=== PATIENT | male | born 1975 | race Caucasian/White ===

== ENCOUNTER 2016-12-05 11:21 | Emergency (ER) | payer BC ==
[~2016-12-05] VITALS: Ht 188 cm; Wt 145.6 kg
[2016-12-05 14:49] VITALS: BP 135/93
== END 2016-12-05 14:49 | disposition home or self-care (01) ==
LOC: ED 11:21
DX: S80.211A Abrasion, right knee, initial encounter (principal); W01.0XXA Fall on same level from slipping, tripping and stumbling without subsequent striking against object, initial encounter; Y93.89 Activity, other specified; Y92.017 Garden or yard in single-family (private) house as the place of occurrence of the external cause; Y99.8 Other external cause status

== ENCOUNTER 2017-08-23 12:22 | Emergency (ER) | payer BC ==
[~2017-08-23] VITALS: Ht 188 cm; Wt 141.1 kg
[2017-08-23 12:33] VITALS: Ht 188 cm; Wt 141.1 kg
[2017-08-23 13:12] LABS: BASOPHIL % 0.3 % (0-2); PLATELET COUNT 145 x10^3mcL (130-400); RED CELL DISTRIBUTION WIDTH 13.7 % (11.5-14.5)
[2017-08-23 13:24] LABS: microscopic required? YES; urine erythrocyte TRACE (NEGATIVE)
[2017-08-23 13:29] LABS: CALCIUM 8.2 mg/dL (8.5-10.1); CREATININE SERUM 1.4 mg/dL (0.7-1.3); POTASSIUM SERUM 3.4 mmol/L (3.5-5.1)
[2017-08-23 13:33] LABS: ALBUMIN 3.6 g/dL (3.4-5.0); BILIRUBIN TOTAL 0.5 mg/dL (0.20-1.00)
[2017-08-23 13:34] LABS: TOTAL PROTEIN, SERUM 8.5 g/dL (6.4-8.2)
[2017-08-23 17:34] VITALS: BP 102/73
== END 2017-08-23 17:45 | disposition home or self-care (01) ==
LOC: ED 12:22
PROVIDERS: Emergency Medicine
DX: R65.10 Systemic inflammatory response syndrome (SIRS) of non-infectious origin without acute organ dysfunction (principal); R73.9 Hyperglycemia, unspecified; N28.9 Disorder of kidney and ureter, unspecified; Z48.816 Encounter for surgical aftercare following surgery on the genitourinary system
CPT/HCPCS: 82962; 84439; 86788; 86789; J0696